=== PATIENT | male | born 1980 | race African-American/Black ===

== ENCOUNTER 2016-12-12 10:45 | Outpatient (CLI) | payer BC ==
[~2016-12-12 10:45] MED LIST: CEPHALEXIN500 MG ORAL
--- NOTE | 2016-12-12 15:51 | Diagnostic Imaging Report ---
Indication: PAIN Technique: 3 views of the right shoulder Comparison: none Findings: No acute fractures. No dislocations. Joint spaces are preserved Impression:Negative
== END 2016-12-12 12:15 | disposition home or self-care (01) ==
LOC: EDBD 10:45 → RAD 10:45
DX: M25.511 Pain in right shoulder (principal)